=== PATIENT | male | born 1970 | race Caucasian/White ===

== ENCOUNTER → 2018-10-24 | Outpatient (CLI) | payer MEDICAID | LOC: FIMAGING 14:57 | PROVIDERS: ATTEND Family Medicine | DX: S62.509D Fracture of unspecified phalanx of unspecified thumb, subsequent encounter for fracture with routine healing (principal) | CPT/HCPCS: 73140-PN ==

== ENCOUNTER → 2018-11-15 | Outpatient (CLI) | payer MEDICAID | LOC: EMCIMAGING 16:40 | PROVIDERS: ATTEND Family Medicine | DX: S62.509A Fracture of unspecified phalanx of unspecified thumb, initial encounter for closed fracture (principal) | CPT/HCPCS: 73140-PN ==